=== PATIENT | female | born 1970 | race Two or more races ===

== ENCOUNTER 2017-09-13 07:55 | Outpatient (CLI) | payer OTHER | END 2017-09-13 08:30 | disposition home or self-care (01) | LOC: NUCLEAR 07:55 | DX: C53.0 Malignant neoplasm of endocervix (principal) | CPT/HCPCS: 78816; A9552 ==

== ENCOUNTER → 2018-05-21 | Outpatient (CLI) | payer OTHER | END | disposition home or self-care (01) | LOC: NUCLEAR 07:00 | DX: C53.8 Malignant neoplasm of overlapping sites of cervix uteri (principal); Z08 Encounter for follow-up examination after completed treatment for malignant neoplasm | CPT/HCPCS: 78815; A9552 ==

== ENCOUNTER 2020-05-03 08:53 | Outpatient (CLI) | payer OTHER | END 2020-05-03 08:58 | disposition home or self-care (01) | LOC: SONOGRAMA 08:53 | PROVIDERS: ATTEND Pathology Anatomic Pathology & Clinical Pathology | DX: E04.1 Nontoxic single thyroid nodule (principal) ==

== ENCOUNTER 2022-04-20 07:06 | Outpatient (CLI) | payer OTHER | END 2022-04-20 07:13 | disposition home or self-care (01) | LOC: TOM 07:06 | DX: K56.609 Unspecified intestinal obstruction, unspecified as to partial versus complete obstruction (principal); K52.0 Gastroenteritis and colitis due to radiation ==

== ENCOUNTER 2022-05-30 08:07 | Outpatient (CLI) | payer OTHER | END 2022-05-30 08:12 | disposition home or self-care (01) | LOC: RX STUDY 08:07 | PROVIDERS: ATTEND General Practice | DX: K56.609 Unspecified intestinal obstruction, unspecified as to partial versus complete obstruction (principal); K52.0 Gastroenteritis and colitis due to radiation ==

== ENCOUNTER 2023-01-25 07:13 | Outpatient (CLI) | payer OTHER | END 2023-01-25 07:21 | disposition home or self-care (01) | LOC: RX STUDY 07:13 | DX: Z93.3 Colostomy status (principal) ==